=== PATIENT | female | born 1995 | race Native Hawaiian/Other Pacific Islander ===

== ENCOUNTER 2020-01-19 16:08 | Emergency (ER) | payer OTHER ==
[~2020-01-19] VITALS: Ht 152.4 cm; Wt 77.1 kg
[2020-01-19 19:25] VITALS: BP 120/78; TEMP 97.6
== END 2020-01-19 19:25 | disposition home or self-care (01) ==
LOC: ED 16:08
DX: J12.9 Viral pneumonia, unspecified (principal)
CPT/HCPCS: 87502; 87635; 87651; 94664; 96375; 99283; J0696